=== PATIENT | female | born 1960 | race Caucasian/White ===

== ENCOUNTER 2022-05-09 05:24 | Day surgery (SDC) | payer OTHER ==
[2022-05-07 11:40] VITALS: BMI 28.3
[2022-05-09] MEDS ORDERED: LACTATED RINGERS SOLUTION 1,000 ML IV SCH (07:30)
[2022-05-09 09:03] VITALS: PULSE 58
[2022-05-09 09:24] VITALS: BP 105/66; RESP 18; TEMP 98
== END 2022-05-09 09:24 | disposition home or self-care (01) ==
LOC: JASU-ENDO 05:24
PROVIDERS: ATTEND Internal Medicine
PROC: 0DJ08ZZ Inspection of Upper Intestinal Tract, Via Natural or Artificial Opening Endoscopic (ICD-10-PCS; principal; 2022-05-09 08:00)
DX: K44.9 Diaphragmatic hernia without obstruction or gangrene (principal)
CPT/HCPCS: 88305-TC; 88341-TC; 88342-TC